=== PATIENT | female | born 1940 | race African-American/Black ===

== ENCOUNTER 2019-06-23 11:55 | Inpatient (IN) | payer OTHER ==
[~2019-06-23] VITALS: Ht 160 cm; Wt 52.5 kg
[2019-06-23 12:00] VITALS: BP 109/85
[2019-06-23] MEDS ORDERED: ACETAMINOPHEN 650 MG SUPP.RECT. RC PRN (13:30)
[2019-06-23] MEDS ORDERED: BISACODYL 10 MG SUPP.RECT RC PRN (13:30)
[2019-06-23] MEDS ORDERED: PROCHLORPERAZINE 10MG TABLET PO PRN (13:30)
[2019-06-23] MEDS ORDERED: PROC10TA57 PO (13:41)
[2019-06-23] MEDS ORDERED: MORPHINE LIQUID PO (13:41)
[2019-06-23] MEDS ORDERED: LORA-254 PO (13:41)
[2019-06-23] MEDS ORDERED: BISA10SU4 RC (13:41)
[2019-06-23] MEDS ORDERED: ACET650S11 RC (13:41)
[2019-06-23] MEDS ORDERED: LEXAPRO10 MG PO (13:41)
[2019-06-23 22:57] VITALS: BP 108/66
[2019-06-24] MEDS: LORazepam 1 MG TABLET PO PRN ×2 (00:27→07:51)
[2019-06-24 07:01] VITALS: BP 139/87
[2019-06-24] MEDS: ESCITALOPRAM 10MG TABLET PO SCH (07:50)
[2019-06-24] MEDS ORDERED: LORazepam INTENSOL 2 MG/ML BOTTLE SL PRN (11:00)
[2019-06-25] MEDS: MORPHINE SULFATE 20 MG/ML CONC SOLUTION. PO/SL PRN ×2 (03:10→18:07)
[2019-06-25 06:18] VITALS: BP 142/72
[2019-06-25] MEDS: ESCITALOPRAM 10MG TABLET PO SCH (07:54)
--- NOTE | 2019-06-25 12:32 | HP ---
ADMIT DATE: 06/23/2019 SHORT NOTE The patient is a 78-year-old female patient with cerebral atherosclerosis and vascular dementia. She is here for respite care. She continues to be on her comfort medication including lorazepam, morphine together with Tylenol as well as escitalopram oxalate. She will be here for 4 nights and will be discharged back home on Sunday06/27/2019. RUSTY MCGILL MD DR: NELSON/dante JOB#: [id number] / [id number]
[2019-06-26 05:00] VITALS: BP 126/74
[2019-06-26] MEDS: MORPHINE SULFATE 20 MG/ML CONC SOLUTION. PO/SL PRN ×3 (08:09→22:36)
[2019-06-26] MEDS: ESCITALOPRAM 10MG TABLET PO SCH (09:00)
[2019-06-26 20:20] VITALS: BP 98/60
[2019-06-27 05:40] VITALS: BP 109/68
[2019-06-27] MEDS: ESCITALOPRAM 10MG TABLET PO SCH (09:00)
== END 2019-06-27 10:33 | disposition hospice, home (50) | DRG 72 ==
LOC: 1 SOUTH 11:55
PROVIDERS: ADMIT Internal Medicine; ATTEND Internal Medicine
DX: I67.2 Cerebral atherosclerosis (principal); F01.50 Vascular dementia, unspecified severity, without behavioral disturbance, psychotic disturbance, mood disturbance, and anxiety; Z51.5 Encounter for palliative care
CPT/HCPCS: Q5005